=== PATIENT | male | born 1980 | race Caucasian/White ===

== ENCOUNTER 2017-12-28 23:18 | Emergency (ER) | payer OTHER ==
[~2017-12-28] VITALS: Ht 175.3 cm; Wt 81.6 kg
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
[2017-12-29] MEDS ORDERED: BACI28.34 TP (00:08)
[2017-12-29] MEDS ORDERED: HYDR-79 PO (00:08)
[2017-12-29] MEDS ORDERED: oxyCODONE/APAP 10/325 1 TAB TABLET PO ONE (00:15)
[2017-12-29 00:50] VITALS: BP 117/76
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
== END 2017-12-29 00:52 | disposition home or self-care (01) ==
LOC: ER 23:18
DX: S52.121A Displaced fracture of head of right radius, initial encounter for closed fracture (principal); S40.211A Abrasion of right shoulder, initial encounter; S80.211A Abrasion, right knee, initial encounter; V89.2XXA Person injured in unspecified motor-vehicle accident, traffic, initial encounter; Y93.89 Activity, other specified; Y99.8 Other external cause status; Y92.89 Other specified places as the place of occurrence of the external cause
CPT/HCPCS: 73060; 73080; 99284